=== PATIENT | male | born 1945 | race Caucasian/White ===

== ENCOUNTER → 2016-05-14 | Outpatient (CLI) | payer MEDICARE, MEDICAID ==
[~2016-05-14] MED LIST: ACLI400A2 INH; ASPI-496 PO; ASPI-515 PO; BUDE10.2 INH; CEFD300C2 PO; CHLO15MO MM; CLOT15CR5 TP; DOCU100T3 PO; DOXA4TAB3 PO; ENAL1TAB5 PO; ENAL20TA PO; FINA5TAB4 PO; FLUT1DIS3 INH; HYDR-3138 PO; HYDR-3240 PO; HYDR25TA6 PO; INSU100I28 SQ-INSULIN; INSU100V13 SC; IPRA12.9 INH; IPRA4AER INH; METF10002 PO; METF500T PO; METO-95 PO; METO50TA82 PO; MULT-257 PO; NAPR220C PO; NIAC500T PO; OMEP-110 PO; OMEP40CA6 PO; POTA10TA90 PO; POTA20TA89 PO; RANI150T8 PO; SIMV20TA3 PO; TAMS-11 PO; TAMS0.4C2 PO; TRAZ50TA18 PO
[2016-05-14 14:30] LABS: HEMOGLOBIN 13.8 g/dL (13.7-18.0)
[2016-05-14 14:41] LABS: ASPARTATE AMINO TRANSFERASE 19 U/L (15-37); BLOOD UREA NITROGEN 21 mg/dL (7-18)
== END | disposition home or self-care (01) ==
LOC: STAR 13:18
PROVIDERS: ATTEND Urology
DX: Z01.818 Encounter for other preprocedural examination (principal); N28.9 Disorder of kidney and ureter, unspecified
CPT/HCPCS: 36415; 80053; 85025; 93005

== ENCOUNTER 2016-05-20 05:10 | Inpatient (IN) | payer MEDICARE, MEDICAID ==
[2016-05-14 14:04] VITALS: BP 134/87
[~2016-05-20] VITALS: Ht 182.9 cm; Wt 90.0 kg
[2016-05-20] MEDS ORDERED: MIDAZOLAM 1 MG/ML, 2ML ONE (07:40)
[2016-05-20] MEDS ORDERED: FENTANYL PF 250 MCG/5ML ONE (07:40)
[2016-05-20] MEDS ORDERED: LABETALOL 5MG/ML, 20ML IV PRN (09:00)
[2016-05-20] MEDS ORDERED: FENTANYL PF 100 MCG/2ML IV PRN (09:00)
[2016-05-20] MEDS ORDERED: PROMETHAZINE 25 MG/ML, 1ML IV PRN (09:00)
[2016-05-20] MEDS ORDERED: MEPERIDINE/PF 25MG/0.5ML IVPush PRN (09:00)
[2016-05-20] MEDS ORDERED: OXYcodone 5 MG/5 ML ORAL.SOL UDC PO PRN (09:00)
[2016-05-20] MEDS ORDERED: METOCLOPRAMIDE 5 MG/ML, 2ML IV PRN (09:00)
[2016-05-20] MEDS ORDERED: MIDAZOLAM 1 MG/ML, 2ML IV PRN (09:00)
[2016-05-20] MEDS ORDERED: hydrALAzine 20 MG/ML, 1ML IV PRN (09:00)
[2016-05-20] MEDS ORDERED: ACETAMINOPHEN 325 MG TABLET PO PRN (09:00)
[2016-05-20] MEDS ORDERED: ONDANSETRON 2MG/ML, 2ML IVPush PRN (09:00)
[2016-05-20] MEDS ORDERED: HYDROmorphone 1 MG/ML, 1ML IV PRN (09:00)
[2016-05-20] MEDS ORDERED: HYDROmorphone 2 MG/ML, 1ML ONE (09:15)
[2016-05-20] MEDS ORDERED: OMNIPAQUE 350 MG/ML, 50 ML BOTTLE ONE (10:08)
[2016-05-20] MEDS ORDERED: OPIUM/BELLADONNA SUPP.RECT 16.2-60 MG ONE (11:22)
[2016-05-20] MEDS ORDERED: OPIUM/BELLADONNA SUPP.RECT 16.2-60 MG PR PRN ×2 (11:30→13:30)
[2016-05-20] MEDS ORDERED: ONDANSETRON 2MG/ML, 2ML IV PRN (13:30)
[2016-05-20] MEDS ORDERED: D5%-LACTATED RINGERS 1,000 ML IV SCH (13:30)
[2016-05-20] MEDS ORDERED: OXYcodone/APAP 5/325MG TABLET PO PRN (13:30)
[2016-05-20] MEDS ORDERED: DOCUSATE 100 MG CAPSULE PO PRN (13:30)
[2016-05-20] MEDS ORDERED: HYDROcodone/APAP 5/325 TABLET PO PRN (13:30)
[2016-05-20] MEDS ORDERED: morphine SULFATE 10 MG/ML, 1ML IV PRN ×2 (13:30)
[2016-05-20] MEDS ORDERED: NICOTINE 7 MG/24 HR PATCH.TD24 TD SCH (13:30)
[2016-05-20] MEDS ORDERED: ALBUTEROL/IPRATROPIUM 2.5MG/0.5MG, 3 ML NPPB PRN (14:00)
[2016-05-20] MEDS: SODIUM CHLORIDE 0.45% 1,000 ML IV SCH (14:25)
[2016-05-20] MEDS: metFORMIN 500 MG TABLET PO SCH ×2 (17:05→17:07)
[2016-05-20] MEDS: CEFAZOLIN PMX 1GM/50ML 50 ML IVPB SCH (17:05)
[2016-05-20] MEDS: INSULIN REGULAR 100 UNITS/ML, 3ML VIAL SQ-INSULIN SCH ×2 (17:29→21:07)
[2016-05-20 19:31] VITALS: BP 122/69
[2016-05-20] MEDS ORDERED: TRAZODONE 100MG TABLET PO SCH (21:00)
[2016-05-20] MEDS ORDERED: INSULIN DETEMIR 100 UNITS/ML, PEN SQ-INSULIN SCH (21:00)
[2016-05-20] MEDS ORDERED: SIMVASTATIN 20 MG TABLET PO SCH (21:00)
[2016-05-20] MEDS: ENALAPRIL 10 MG TABLET PO SCH (21:05)
[2016-05-20] MEDS: HYDROCHLOROTHIAZIDE 25 MG TABLET PO SCH (21:05)
[2016-05-21] MEDS: CEFAZOLIN PMX 1GM/50ML 50 ML IVPB SCH
[2016-05-21] MEDS: SODIUM CHLORIDE 0.45% 1,000 ML IV SCH ×2 (00:01→10:41)
[2016-05-21 01:44] VITALS: BP 131/70
[2016-05-21] MEDS ORDERED: METOPROLOL SUCCINATE 100 MG TAB.ER.24H PO SCH (06:00)
[2016-05-21 06:31] VITALS: BP 168/95
[2016-05-21 06:45] VITALS: BP 153/83
[2016-05-21] MEDS: INSULIN REGULAR 100 UNITS/ML, 3ML VIAL SQ-INSULIN SCH (07:00)
[2016-05-21] MEDS ORDERED: OMEPRAZOLE 20 MG CAPSULE.DR PO SCH (07:30)
[2016-05-21] MEDS: HYDROCHLOROTHIAZIDE 25 MG TABLET PO SCH (07:43)
[2016-05-21] MEDS: ENALAPRIL 10 MG TABLET PO SCH (07:44)
[2016-05-21] MEDS: metFORMIN 500 MG TABLET PO SCH (07:44)
[2016-05-21] MEDS ORDERED: CEPH-368 PO (11:20)
[2016-05-21] MEDS ORDERED: OXYB5TAB7 PO (11:20)
== END 2016-05-21 12:43 | disposition home or self-care (01) | DRG 667 ==
LOC: OUT 05:10 → 4NOR 11:29 → OUT 05-21 01:51 → DCLOUNGE 05-21 11:03
PROVIDERS: ADMIT Urology; ATTEND Urology
PROC: 0TCB8ZZ Extirpation of Matter from Bladder, Via Natural or Artificial Opening Endoscopic (ICD-10-PCS; principal; 2016-05-21)
PROC: 0VB08ZZ Excision of Prostate, Via Natural or Artificial Opening Endoscopic (ICD-10-PCS; 2016-05-21)
PROC: BT1D1ZZ Fluoroscopy of Right Kidney, Ureter and Bladder using Low Osmolar Contrast (ICD-10-PCS; 2016-05-21)
DX: N21.0 Calculus in bladder (principal); N40.1 Benign prostatic hyperplasia with lower urinary tract symptoms; R33.8 Other retention of urine; N32.89 Other specified disorders of bladder; I10 Essential (primary) hypertension; J44.9 Chronic obstructive pulmonary disease, unspecified; E11.9 Type 2 diabetes mellitus without complications; Z82.3 Family history of stroke; Z90.79 Acquired absence of other genital organ(s); N28.82 Megaloureter
CPT/HCPCS: 74420; 82360; 82962; 88300; 88305; 94640; J0690; J1170; J1815; J2250; J3010; J7620; Q9967; C1769

== ENCOUNTER → 2016-06-27 | Outpatient (CLI) | payer MEDICARE, MEDICAID ==
[~2016-06-27] MED LIST changes: -CEFD300C2 PO; +CEFD300C37 PO; +CEPH-368 PO; +OXYB5TAB7 PO
== END | disposition home or self-care (01) ==
LOC: CFH 10:05
PROVIDERS: ATTEND Internal Medicine Geriatric Medicine
DX: B18.1 Chronic viral hepatitis B without delta-agent (principal); N28.1 Cyst of kidney, acquired; R93.2 Abnormal findings on diagnostic imaging of liver and biliary tract
CPT/HCPCS: 93975

== ENCOUNTER → 2016-09-26 | Outpatient (CLI) | payer MEDICARE, MEDICAID ==
[~2016-09-26] MED LIST changes: +CELE100C PO
[2016-09-26 15:20] LABS: PATH.CAST-FLAG NOT PRESENT; SPERM-FLAG NOT PRESENT; SRC-FLAG NOT PRESENT; XTAL-FLAG NOT PRESENT; YLC-FLAG NOT PRESENT
[2016-09-26 15:23] LABS: ASPARTATE AMINO TRANSFERASE 15 U/L (15-37); BLOOD UREA NITROGEN 26 mg/dL (7-18)
[2016-09-26 15:42] LABS: HEMATOCRIT 42.6 % (39.2-51.8); WHITE BLOOD COUNT 7.6 x10^3/uL (3.4-10)
== END | disposition home or self-care (01) ==
LOC: STAR 14:02
PROVIDERS: ATTEND Urology
DX: Z01.818 Encounter for other preprocedural examination (principal); I44.4 Left anterior fascicular block; N20.0 Calculus of kidney; N47.1 Phimosis; N21.0 Calculus in bladder; R79.1 Abnormal coagulation profile; J44.9 Chronic obstructive pulmonary disease, unspecified; E11.9 Type 2 diabetes mellitus without complications
CPT/HCPCS: 36415; 80053; 81001; 85025; 85610; 85730; 87077; 87086; 87186; 93005

== ENCOUNTER → 2016-11-03 | Outpatient (CLI) | payer MEDICARE, MEDICAID ==
[~2016-11-03] MED LIST changes: -HYDR-3138 PO; +HYDR-3237 PO; +POTA10TA6 PO; -POTA10TA90 PO
[2016-11-03 14:52] LABS: HEMATOCRIT 42.8 % (39.2-51.8); HEMOGLOBIN 14.5 g/dL (13.7-18.0); WHITE BLOOD COUNT 12.1 x10^3/uL (3.4-10)
[2016-11-03 15:05] LABS: BLOOD UREA NITROGEN 25 mg/dL (7-18)
[2016-11-03 15:09] LABS: ASPARTATE AMINO TRANSFERASE 20 U/L (15-37)
== END | disposition home or self-care (01) ==
LOC: STAR 13:36
PROVIDERS: ATTEND Urology
DX: Z01.818 Encounter for other preprocedural examination (principal); N20.1 Calculus of ureter; N21.0 Calculus in bladder; R31.0 Gross hematuria; N47.1 Phimosis; N40.1 Benign prostatic hyperplasia with lower urinary tract symptoms
CPT/HCPCS: 36415; 80053; 81001; 85025; 85610; 85730; 87077; 87086; 93005

== ENCOUNTER 2016-11-19 07:34 | Day surgery (SDC) | payer MEDICARE, MEDICAID ==
[~2016-11-19] VITALS: Ht 182.9 cm; Wt 86.9 kg
[2016-11-19] MEDS ORDERED: MIDAZOLAM 1 MG/ML, 2ML ONE (08:09)
[2016-11-19] MEDS ORDERED: PROPOFOL 10 MG/ML, 20ML ONE ×2 (08:09→10:03)
[2016-11-19] MEDS ORDERED: FENTANYL PF 100 MCG/2ML ONE (08:09)
[2016-11-19] MEDS ORDERED: DEXAMETHASONE 4 MG/ML, 1ML ONE ×2 (08:09)
[2016-11-19] MEDS ORDERED: ONDANSETRON 2MG/ML, 2ML ONE (08:09)
[2016-11-19] MEDS ORDERED: CEFAZOLIN 1,000 MG ONE ×2 (08:11)
[2016-11-19 08:27] VITALS: BP 144/94
[2016-11-19] MEDS ORDERED: LACTATED RINGERS 1,000 ML IV SCH (08:31)
[2016-11-19] MEDS ORDERED: LIDOCAINE 1%, 2ML SQ PRN (09:00)
[2016-11-19] MEDS ORDERED: CIPROFLOXACIN/PMX 400MG/200ML 200 ML ONE (09:58)
[2016-11-19] MEDS ORDERED: GENTAMICIN 80 MG/2 ML ONE (09:58)
[2016-11-19] MEDS ORDERED: GLYCOPYRROLATE 0.4 MG/2 ML, 2ML ONE (10:17)
[2016-11-19] MEDS ORDERED: PROMETHAZINE 25 MG/ML, 1ML IV PRN (11:00)
[2016-11-19] MEDS ORDERED: FENTANYL PF 100 MCG/2ML IV PRN (11:00)
[2016-11-19] MEDS ORDERED: OXYcodone 5 MG/5 ML ORAL.SOL UDC PO PRN (11:00)
[2016-11-19] MEDS ORDERED: OXYcodone 5 MG/5 ML ORAL.SOL UDC ONE (11:34)
== END 2016-11-19 14:45 ==
LOC: OUT 07:34
PROVIDERS: ATTEND Urology
DX: N20.0 Calculus of kidney (principal); J44.9 Chronic obstructive pulmonary disease, unspecified; I10 Essential (primary) hypertension; E11.9 Type 2 diabetes mellitus without complications; Z87.440 Personal history of urinary (tract) infections; F17.200 Nicotine dependence, unspecified, uncomplicated; Z79.4 Long term (current) use of insulin
CPT/HCPCS: 50590; 74000; 82962; J0744; J1580; J2250; J2405; J2704; J3010; J0690; J1100

== ENCOUNTER → 2017-01-21 | Outpatient (CLI) | payer MEDICARE, MEDICAID | END | disposition home or self-care (01) | LOC: CFH 07:45 | PROVIDERS: ATTEND Internal Medicine Geriatric Medicine | DX: N28.1 Cyst of kidney, acquired (principal); B18.1 Chronic viral hepatitis B without delta-agent; I10 Essential (primary) hypertension | CPT/HCPCS: 93975 ==

== ENCOUNTER 2017-02-09 10:32 | Emergency (ER) | payer MEDICARE, MEDICAID ==
[~2017-02-09] VITALS: Ht 182.9 cm; Wt 87.5 kg
[2017-02-09 12:26] VITALS: BP 140/83
== END 2017-02-09 14:05 | disposition home or self-care (01) ==
LOC: ED 13:56
DX: J40 Bronchitis, not specified as acute or chronic (principal); I10 Essential (primary) hypertension; E11.9 Type 2 diabetes mellitus without complications; J44.9 Chronic obstructive pulmonary disease, unspecified; F17.200 Nicotine dependence, unspecified, uncomplicated
CPT/HCPCS: 71046; 99284

== ENCOUNTER 2017-03-01 20:44 | Emergency (ER) | payer MEDICARE, MEDICAID ==
[~2017-03-01] VITALS: Ht 182.9 cm; Wt 85.7 kg
[2017-03-01 20:46] VITALS: BP 147/83
== END 2017-03-01 22:23 | disposition home or self-care (01) ==
LOC: ED 21:09
DX: S13.4XXA Sprain of ligaments of cervical spine, initial encounter (principal); J44.9 Chronic obstructive pulmonary disease, unspecified; I10 Essential (primary) hypertension; E11.9 Type 2 diabetes mellitus without complications; K21.9 Gastro-esophageal reflux disease without esophagitis; E78.00 Pure hypercholesterolemia, unspecified; X58.XXXA Exposure to other specified factors, initial encounter; Y93.89 Activity, other specified; Y92.89 Other specified places as the place of occurrence of the external cause; Y99.8 Other external cause status
CPT/HCPCS: 72050; 99284

== ENCOUNTER 2017-12-09 10:12 | Outpatient (CLI) | payer MEDICARE, MEDICAID ==
[~2017-12-09 10:12] MED LIST changes: +RANI150T23 PO; -RANI150T8 PO; +TRAZ-136 PO; -TRAZ50TA18 PO
== END 2017-12-16 12:09 | disposition home or self-care (01) ==
LOC: CFH 10:12
PROVIDERS: ATTEND Internal Medicine Geriatric Medicine
DX: R16.1 Splenomegaly, not elsewhere classified (principal); N28.1 Cyst of kidney, acquired
CPT/HCPCS: 76700

== ENCOUNTER → 2018-05-24 | Outpatient (CLI) | payer MEDICARE, MEDICAID ==
[~2018-05-24] MED LIST changes: -NAPR220C PO; +NAPR220C62 PO; -TRAZ-136 PO; +TRAZ50TA66 PO
== END | disposition home or self-care (01) ==
LOC: CFH 09:34
PROVIDERS: ATTEND Internal Medicine Geriatric Medicine
DX: B18.1 Chronic viral hepatitis B without delta-agent (principal); N28.1 Cyst of kidney, acquired; R16.1 Splenomegaly, not elsewhere classified
CPT/HCPCS: 76700

== ENCOUNTER 2018-08-31 15:41 | Emergency (ER) | payer MEDICARE, MEDICAID ==
[~2018-08-31] VITALS: Ht 175.3 cm; Wt 99.0 kg
--- NOTE | 2018-08-31 16:06 | NUR ---
PT STATES HE HAS A L SWOLLEN FOOT, HE STATES ITS BEEN GOING ON FOR A COUPLE MONTHS. PT STATES, "IT FEELS LIKE IM WEARING A SOCK". PT ALSO STATES HE WAS SITTING DOWN AND THEN PASSED OUT YESTERDAY, DID NOT HIT HEAD. PT STATES THIS HAPPENS ABOUT ONCE A YEAR.
[2018-08-31 16:51] VITALS: BP 122/95
--- NOTE | 2018-08-31 16:51 | NUR ---
LABS DRAWN, PT DENIES PAIN, NO NEEDS AT THIS TIME
[2018-08-31 17:04] LABS: BASOPHILS # (AUTO) 0.03 x10^3/uL (0-0.1); BASOPHILS % (AUTO) 0 % (0-1); EOSINOPHILS # (AUTO) 0.17 x10^3/uL (0-0.4); EOSINOPHILS % (AUTO) 2 % (1-7); LYMPHOCYTES # (AUTO) 1.46 x10^3/uL (1-3.4); LYMPHOCYTES % (AUTO) 20 % (22-44); MD NO; MEAN CORPUSCULAR HGB CONC 32.5 g/dL (33.2-36.2); MEAN CORPUSCULAR VOLUME 89.1 fL (81-97); MEAN PLATELET VOLUME 7.6 fL (7.4-10.4); MONOCYTES # (AUTO) 0.76 x10^3/uL (0.2-0.8); MONOCYTES % (AUTO) 10 % (2-9); NEUTROPHILS # (AUTO) 4.86 x10^3/uL (1.8-6.8); NEUTROPHILS % (AUTO) 67 % (42-75); PLATELET COUNT 208 x10^3/uL (130-400); RED BLOOD COUNT 4.66 x10^6/uL (4.38-5.82)
[2018-08-31 17:17] LABS: ALANINE AMINOTRANSFERASE 77 U/L (12-78); ALBUMIN 3.8 g/dL (3.4-5.0); ANION GAP 6 mmol/L (5-15); CALCIUM 10.1 mg/dL (8.5-10.1); CHLORIDE 114 mmol/L (98-107); CREATININE 1.59 mg/dL (0.7-1.3)
[2018-08-31 17:21] LABS: ALKALINE PHOSPHATASE 41 U/L (45-117); BILIRUBIN,TOTAL 0.4 mg/dL (0.2-1.0); TOTAL PROTEIN 7.4 g/dL (6.4-8.2); TROPONIN I < 0.015 ng/mL (0.000-0.045)
== END 2018-08-31 18:06 | disposition home or self-care (01) ==
LOC: ED 17:01
DX: I87.2 Venous insufficiency (chronic) (peripheral) (principal); R60.0 Localized edema; R55 Syncope and collapse
CPT/HCPCS: 36415; 80053; 84484; 85025; 93005; 99284

== ENCOUNTER → 2019-01-03 | Outpatient (CLI) | payer MEDICARE, MEDICAID ==
[~2019-01-03] MED LIST changes: -ACLI400A2 INH; +ACLI400A3 INH; +OMEP40CA42 PO; -OMEP40CA6 PO; +OXYB5TAB10 PO; -OXYB5TAB7 PO; +RANI-467 PO; -RANI150T23 PO
== END | disposition home or self-care (01) ==
LOC: CFH 10:46
PROVIDERS: ATTEND Internal Medicine Geriatric Medicine
DX: K76.0 Fatty (change of) liver, not elsewhere classified (principal); B18.1 Chronic viral hepatitis B without delta-agent; R16.1 Splenomegaly, not elsewhere classified; N28.1 Cyst of kidney, acquired; F17.200 Nicotine dependence, unspecified, uncomplicated; F12.10 Cannabis abuse, uncomplicated; I10 Essential (primary) hypertension; E11.9 Type 2 diabetes mellitus without complications; Z86.010 Personal history of colon polyps
CPT/HCPCS: 76700

== ENCOUNTER 2019-04-20 20:40 | Observation (INO) | payer MEDICARE, MEDICAID ==
[~2019-04-20] VITALS: Ht 182.9 cm; Wt 95.6 kg
[~2019-04-20 20:40] MED LIST changes: +SIMV20TA19 PO; -SIMV20TA3 PO
--- NOTE | 2019-04-20 21:01 | NUR ---
REPORTS FEVER & CHILLS X 2 MONTHS, WORSENED IN PAST FEW WEEKS. HAS PCP APPOINTMENT "NEXT THURSDAY" - DR SARAVIA -"BUT I COULDN'T WAIT THAT LONG". HAS TAKEN ALEVE - LAST DOSE:1030 TODAY. C/O PAIN TO JOINTS AND LOWER BACK. TRAN "JUST NOW". NAUSEA W/ COUGHING. DENIES VOMITING. USED BREO & ALBUTEROL INHALER THIS AM.
--- NOTE | 2019-04-20 21:06 | NUR ---
DR FRIAS BS FOR EXAM.
[2019-04-20] MEDS ORDERED: ALLO100T30 PO (21:12)
[2019-04-20] MEDS ORDERED: AMLO10TA8 PO (21:12)
--- NOTE | 2019-04-20 21:23 | NUR ---
PIV INITIATED: 20G LT LOWER FA. BLOOD CX DRAWN X 2, WRIST BAND PLACED PER RESEARCH AND DEVELOPMENT MANAGER. CARDIAC MONITORING IN PROGRESS. EKG AND CXR COMPLETED
[2019-04-20 21:29] LABS: BASOPHILS # (AUTO) 0.01 x10^3/uL (0-0.1); BASOPHILS % (AUTO) 0 % (0-1); EOSINOPHILS # (AUTO) 0.04 x10^3/uL (0-0.4); EOSINOPHILS % (AUTO) 0 % (1-7); LYMPHOCYTES # (AUTO) 0.55 x10^3/uL (1-3.4); LYMPHOCYTES % (AUTO) 6 % (22-44); MD NO; MEAN CORPUSCULAR HEMOGLOBIN 29.5 pg (27.5-34.5); MEAN CORPUSCULAR HGB CONC 33.5 g/dL (33.2-36.2); MEAN CORPUSCULAR VOLUME 88.2 fL (81-97); MEAN PLATELET VOLUME 7.5 fL (7.4-10.4); MONOCYTES # (AUTO) 0.71 x10^3/uL (0.2-0.8); MONOCYTES % (AUTO) 7 % (2-9); NEUTROPHILS # (AUTO) 8.28 x10^3/uL (1.8-6.8); NEUTROPHILS % (AUTO) 86 % (42-75); PLATELET COUNT 205 x10^3/uL (130-400); RED BLOOD COUNT 4.64 x10^6/uL (4.38-5.82)
[2019-04-20] MEDS ORDERED: ACETAMINOPHEN 325 MG TABLET PO ONE (21:30)
[2019-04-20] MEDS ORDERED: SODIUM CHLORIDE 0.9% 1,000ML IVBOLUS ONE (21:30)
[2019-04-20] MEDS ORDERED: SODIUM CHLORIDE FLUSH 10ML SYR IVF ONE (21:30)
[2019-04-20] MEDS ORDERED: ALBU18HF INH (21:35)
[2019-04-20] MEDS ORDERED: BUPR150T6 PO (21:35)
[2019-04-20] MEDS ORDERED: FLUT1AER INH (21:35)
[2019-04-20 21:36] LABS: RAPID INFLUENZA A Negative (Negative); RAPID INFLUENZA B Negative (Negative)
[2019-04-20 21:42] LABS: ALANINE AMINOTRANSFERASE 43 U/L (12-78); ALBUMIN 3.8 g/dL (3.4-5.0); ANION GAP 7 mmol/L (5-15); CALCIUM 8.7 mg/dL (8.5-10.1); CHLORIDE 108 mmol/L (98-107); CREATININE 1.37 mg/dL (0.7-1.3)
[2019-04-20 21:44] LABS: ALKALINE PHOSPHATASE 46 U/L (45-117); BILIRUBIN,TOTAL 0.6 mg/dL (0.2-1.0); TOTAL PROTEIN 7.4 g/dL (6.4-8.2)
[2019-04-20] MEDS ORDERED: ACETAMINOPHEN 325 MG TABLET ONE (21:46)
--- NOTE | 2019-04-20 21:55 | NUR ---
TYLENOL GIVEN PER EMAR. URINAL PROVIDED TO PT.
--- NOTE | 2019-04-20 23:02 | NUR ---
REPORT OF PT FROM CLIF WILD AND ASSUMING CARE OF PT AT THIS TIME.
[2019-04-20 23:05] LABS: MICROSCOPIC AUTO
[2019-04-20 23:08] LABS: CULTURE INDICATED? NO
--- NOTE | 2019-04-20 23:40 | NUR ---
PT TO [facility] VIA [facility] AT THIS TIME
[2019-04-20] MEDS ORDERED: OMNIPAQUE 350 MG/ML, 100ML BOTTLE ONE (23:55)
--- NOTE | 2019-04-21 00:24 | NUR ---
PT BACK FROM [facility]. PT IN [facility] AT THIS TIME. VSS AND UPDATED IN EMR. PT HAS CALL LIGHT WITHIN REACH.
[2019-04-21] MEDS ORDERED: methylPREDNISolone SOD SUCC 125 MG/2 ML ONE (00:41)
[2019-04-21] MEDS ORDERED: ALBUTEROL/IPRATROPIUM 2.5MG/0.5MG, 3 ML NPPB ONE (01:00)
[2019-04-21] MEDS ORDERED: methylPREDNISolone SOD SUCC 125 MG/2 ML IV ONE (01:00)
--- NOTE | 2019-04-21 01:10 | NUR ---
REPORT OF PT TO CLIF ROTHMAN ON PHONE. ALL QUESTIONS ANSWERED.
[2019-04-21 01:45] VITALS: BP 137/74
[2019-04-21] MEDS: CEFTRIAXONE PMX 1GM/50ML 50 ML IV SCH (03:01)
[2019-04-21] MEDS: ENOXAPARIN 40 MG/0.4 ML SQ SCH (03:01)
[2019-04-21] MEDS: TRAZODONE 100MG TABLET PO PRN ×2 (03:04→22:41)
[2019-04-21] MEDS: BUDESONIDE 0.5 MG/2 ML INHA NPPB SCH ×2 (09:00→21:45)
[2019-04-21] MEDS: ALBUTEROL SULFATE 2.5 MG/3 ML NPPB SCH ×3 (09:00→21:45)
[2019-04-21 10:21] VITALS: BP 154/73
[2019-04-21 14:05] VITALS: BP 128/77
[2019-04-21] MEDS: ACETAMINOPHEN 325 MG TABLET PO PRN (17:24)
[2019-04-21 21:00] VITALS: BP 143/79
[2019-04-21] MEDS ORDERED: BENZOCAINE 20% SPRAY 0.5ML TP ONE (21:30)
[2019-04-22 01:12] VITALS: BP 132/52
[2019-04-22] MEDS: ALBUTEROL SULFATE 2.5 MG/3 ML NPPB SCH ×3 (03:00→15:20)
[2019-04-22] MEDS: CEFTRIAXONE PMX 1GM/50ML 50 ML IV SCH (03:08)
[2019-04-22] MEDS: ENOXAPARIN 40 MG/0.4 ML SQ SCH (03:09)
[2019-04-22 06:18] LABS: BASOPHILS % (AUTO) 0 % (0-1); EOSINOPHILS % (AUTO) 0 % (1-7); LYMPHOCYTES # (AUTO) 0.69 x10^3/uL (1-3.4); LYMPHOCYTES % (AUTO) 6 % (22-44); MD NO; MEAN CORPUSCULAR HEMOGLOBIN 29.5 pg (27.5-34.5); MEAN CORPUSCULAR HGB CONC 33.4 g/dL (33.2-36.2); MEAN CORPUSCULAR VOLUME 88.4 fL (81-97); MEAN PLATELET VOLUME 7.7 fL (7.4-10.4); MONOCYTES # (AUTO) 0.79 x10^3/uL (0.2-0.8); MONOCYTES % (AUTO) 7 % (2-9); NEUTROPHILS # (AUTO) 10.38 x10^3/uL (1.8-6.8); NEUTROPHILS % (AUTO) 88 % (42-75); PLATELET COUNT 204 x10^3/uL (130-400); RED BLOOD COUNT 4.16 x10^6/uL (4.38-5.82); RED CELL DISTRIBUTION WIDTH 16.2 % (9.4-14.8)
[2019-04-22 06:26] LABS: ANION GAP 7 mmol/L (5-15); CALCIUM 8.5 mg/dL (8.5-10.1); CHLORIDE 112 mmol/L (98-107)
[2019-04-22 06:29] LABS: CREATININE 1.42 mg/dL (0.7-1.3)
[2019-04-22] MEDS: ACETAMINOPHEN 325 MG TABLET PO PRN ×2 (08:35→14:42)
[2019-04-22] MEDS: BUDESONIDE 0.5 MG/2 ML INHA NPPB SCH (09:30)
[2019-04-22 11:23] VITALS: BP 135/82
[2019-04-22] MEDS ORDERED: AMPICILLIN/SULBACTAM 3 GM in SODIUM CHLORIDE 0.9% 100 ML IV SCH (14:00)
[2019-04-22 14:28] VITALS: BP 131/64
[2019-04-22] MEDS ORDERED: PRED20TA PO (16:17)
[2019-04-22] MEDS ORDERED: FLUT16SP24 NAS (16:17)
[2019-04-22] MEDS ORDERED: AMOX1TAB64 PO (16:17)
[2019-04-22] MEDS ORDERED: FLUTICASONE NASAL SPRAY 16GM NAS SCH (21:00)
== END 2019-04-22 18:27 | disposition home or self-care (01) ==
LOC: ED 04-21 01:06 → EDIP 04-21 01:38 → 3N 04-21 01:41
PROVIDERS: ADMIT Family Medicine; ATTEND Family Medicine
DX: J44.1 Chronic obstructive pulmonary disease with (acute) exacerbation (principal); N17.9 Acute kidney failure, unspecified; N18.9 Chronic kidney disease, unspecified; I12.9 Hypertensive chronic kidney disease with stage 1 through stage 4 chronic kidney disease, or unspecified chronic kidney disease; F32.9 Major depressive disorder, single episode, unspecified; R50.9 Fever, unspecified; M10.9 Gout, unspecified; E78.5 Hyperlipidemia, unspecified; F17.210 Nicotine dependence, cigarettes, uncomplicated; J20.9 Acute bronchitis, unspecified; Z79.82 Long term (current) use of aspirin; Z79.4 Long term (current) use of insulin
CPT/HCPCS: 36415; 71045; 71275; 80048; 80053; 81001; 82962; 83605; 84145; 85025; 87040; 87205; 87400; 93005; 94640; 96365; 96366; 96367; 96372; 96375; 99285; G0378; J0295; J0696; J1650; J2930; J7030; J7512; J7613; J7626; Q9967

== ENCOUNTER 2019-08-09 14:36 | Emergency (ER) | payer MEDICAID, MEDICARE ==
[~2019-08-09] VITALS: Ht 182.9 cm; Wt 105.0 kg
[~2019-08-09 14:36] MED LIST changes: +ALBU18HF INH; +ALLO100T30 PO; +AMLO10TA8 PO; +AMOX1TAB64 PO; +BUPR150T6 PO; +CLOT15CR26 TP; -CLOT15CR5 TP; +FLUT16SP24 NAS; +FLUT1AER INH; +PRED20TA PO
--- NOTE | 2019-08-09 15:03 | NUR ---
pt presents to ED sent from pcp via [facility] for sob, increased wob. report received from ems. 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 pt denies new cough (states he has a chronic cough which is no different from his normal today), denies fever, denies sick contacts. pt states he feels his symptoms are secondary to asthma. pt is a&o, resps even and unlabored, able to speak in full sentences. pt denies pain. EKG taken on arrival, pt on all monitors, call light in reach. report given to CLIF Gonzalez who is assuming care.
[2019-08-09 15:30] LABS: BASOPHILS # (AUTO) 0.03 x10^3/uL (0-0.1); BASOPHILS % (AUTO) 0 % (0-1); EOSINOPHILS # (AUTO) 0.23 x10^3/uL (0-0.4); EOSINOPHILS % (AUTO) 4 % (1-7); LYMPHOCYTES # (AUTO) 1.73 x10^3/uL (1-3.4); LYMPHOCYTES % (AUTO) 26 % (22-44); MD NO; MEAN CORPUSCULAR HEMOGLOBIN 29.5 pg (27.5-34.5); MEAN CORPUSCULAR HGB CONC 33.4 g/dL (33.2-36.2); MEAN CORPUSCULAR VOLUME 88.4 fL (81-97); MEAN PLATELET VOLUME 7.3 fL (7.4-10.4); MONOCYTES # (AUTO) 0.58 x10^3/uL (0.2-0.8); MONOCYTES % (AUTO) 9 % (2-9); NEUTROPHILS # (AUTO) 4.09 x10^3/uL (1.8-6.8); NEUTROPHILS % (AUTO) 61 % (42-75); PLATELET COUNT 218 x10^3/uL (130-400); RED CELL DISTRIBUTION WIDTH 14.8 % (9.4-14.8)
[2019-08-09 15:32] LABS: ALBUMIN 3.8 g/dL (3.4-5.0); ANION GAP 5 mmol/L (5-15); CALCIUM 9.3 mg/dL (8.5-10.1); CHLORIDE 111 mmol/L (98-107); CREATININE 1.41 mg/dL (0.7-1.3)
[2019-08-09] MEDS ORDERED: ALBUTEROL/IPRATROPIUM 2.5MG/0.5MG, 3 ML ONE (16:29)
[2019-08-09] MEDS ORDERED: ALBUTEROL/IPRATROPIUM 2.5MG/0.5MG, 3 ML NPPB ONE (16:30)
[2019-08-09 16:36] VITALS: BP 154/76
--- NOTE | 2019-08-09 18:02 | NUR ---
Transport arranged through [facility]. ETA is [phone].
--- NOTE | 2019-08-09 18:28 | NUR ---
[facility]waiting [facility]. Pt tolerated neb well and dressed for home dc.
== END 2019-08-09 19:17 ==
LOC: ED 16:02
DX: J44.1 Chronic obstructive pulmonary disease with (acute) exacerbation (principal); R06.00 Dyspnea, unspecified; I10 Essential (primary) hypertension; E11.9 Type 2 diabetes mellitus without complications; M10.9 Gout, unspecified; I44.4 Left anterior fascicular block
CPT/HCPCS: 36415; 71045; 80048; 82040; 85025; 93005; 94640; 99285; J7512

== ENCOUNTER → 2019-12-13 | Outpatient (CLI) | payer MEDICARE, MEDICAID ==
[~2019-12-13] MED LIST changes: +AMLO-211 PO; -AMLO10TA8 PO; +DOXA2TAB9 PO; -ENAL20TA PO; +ENAL20TA9 PO; +TIOT18CA INH
== END | disposition home or self-care (01) ==
LOC: CFH 16:15
PROVIDERS: ATTEND Internal Medicine Geriatric Medicine
DX: N26.1 Atrophy of kidney (terminal) (principal); N28.1 Cyst of kidney, acquired; K76.0 Fatty (change of) liver, not elsewhere classified; B18.1 Chronic viral hepatitis B without delta-agent; J45.909 Unspecified asthma, uncomplicated
CPT/HCPCS: 76700

== ENCOUNTER → 2020-01-13 | Outpatient (CLI) | payer MEDICARE, MEDICAID | END | disposition home or self-care (01) | LOC: CFH 07:34 | PROVIDERS: ATTEND Internal Medicine Critical Care Medicine | DX: I11.9 Hypertensive heart disease without heart failure (principal); E11.9 Type 2 diabetes mellitus without complications; E78.5 Hyperlipidemia, unspecified; J45.909 Unspecified asthma, uncomplicated; Z87.891 Personal history of nicotine dependence | CPT/HCPCS: 93306 ==

== ENCOUNTER 2020-03-29 00:53 | Emergency (ER) | payer MEDICARE, MEDICAID ==
[~2020-03-29] VITALS: Ht 185.4 cm; Wt 106.0 kg
[~2020-03-29 00:53] MED LIST changes: -ASPI-515 PO; +ASPI-963 PO; -BUPR150T6 PO; +BUPR150T7 PO; +HYDR-1067 PO; -HYDR-3240 PO
[2020-03-29] MEDS ORDERED: LISI-167 PO (01:25)
[2020-03-29] MEDS ORDERED: ALBUTEROL SULFATE 2.5 MG/3 ML ONE (01:43)
[2020-03-29 01:58] LABS: BASOPHILS % (AUTO) 1 % (0-1); EOSINOPHILS % (AUTO) 3 % (1-7); LYMPHOCYTES % (AUTO) 21 % (22-44); MEAN CORPUSCULAR HEMOGLOBIN 29.1 pg (27.5-34.5); MEAN CORPUSCULAR HGB CONC 33.5 g/dL (33.2-36.2); MEAN PLATELET VOLUME 7.7 fL (7.4-10.4); MONOCYTES % (AUTO) 9 % (2-9); NEUTROPHILS % (AUTO) 65 % (42-75); PLATELET COUNT 198 x10^3/uL (130-400); RED CELL DISTRIBUTION WIDTH 15.2 % (9.4-14.8)
[2020-03-29] MEDS ORDERED: ALBUTEROL SULFATE 2.5 MG/3 ML NPPB ONE (02:00)
[2020-03-29 02:01] LABS: MD NO
[2020-03-29 02:06] LABS: ALANINE AMINOTRANSFERASE 130 U/L (12-78); ALBUMIN 3.6 g/dL (3.4-5.0); ANION GAP 10 mmol/L (5-15); CALCIUM 8.9 mg/dL (8.5-10.1); CHLORIDE 109 mmol/L (98-107); CREATININE 1.61 mg/dL (0.7-1.3)
--- NOTE | 2020-03-29 02:06 | NUR ---
NEB TX COMPLETED. PT REPORTS "FEELING A LOT BETTER AFTER THAT BREATHING TX". PT SITTING UPRIGHT ON GURPAULINE, NADN, VSS. PT DENIES ANY ADDITIONAL NEEDS AT THIS TIME. CALL LIGHT AND PERSONAL BELONGINGS WITHIN REACH
[2020-03-29 02:11] LABS: ALKALINE PHOSPHATASE 47 U/L (45-117); BILIRUBIN,TOTAL 0.4 mg/dL (0.2-1.0); TOTAL PROTEIN 7.2 g/dL (6.4-8.2); TROPONIN I < 0.015 ng/mL (0.000-0.045)
--- NOTE | 2020-03-29 03:11 | NUR ---
PT GIVEN JUICE AND CRACKERS PER REQUEST. PT DENIES ANY NEEDS AT THIS TIME. CALL LIGHT IN REACH
[2020-03-29 03:49] VITALS: BP 144/79
--- NOTE | 2020-03-29 03:50 | NUR ---
Patient/Caregiver given discharge instructions and they have confirmed that they understand the instructions. Patient ambulatory with steady gait.
== END 2020-03-29 03:54 | disposition home or self-care (01) ==
LOC: ED 01:42
DX: E11.65 Type 2 diabetes mellitus with hyperglycemia (principal); R53.1 Weakness; R06.02 Shortness of breath; I10 Essential (primary) hypertension; J44.9 Chronic obstructive pulmonary disease, unspecified; K21.9 Gastro-esophageal reflux disease without esophagitis; E78.00 Pure hypercholesterolemia, unspecified; M10.9 Gout, unspecified; R94.31 Abnormal electrocardiogram [ECG] [EKG]; F17.210 Nicotine dependence, cigarettes, uncomplicated
CPT/HCPCS: 36415; 71045; 80053; 82962; 83880; 84484; 85025; 93005; 94640; 99285; J7512; J7613; 99406

== ENCOUNTER 2020-08-25 20:40 | Emergency (ER) | payer MEDICARE, MEDICAID ==
[~2020-08-25] VITALS: Ht 182.9 cm; Wt 105.0 kg
[~2020-08-25 20:40] MED LIST changes: +BUPR150T22 PO; -BUPR150T7 PO; -HYDR-1067 PO; +HYDR-2214 PO; +INSU100I11 SQ-INSULIN; +INSU100I13 SQ-INSULIN; +LISI-167 PO; +MELA5CAP PO; +NICO-486 TD; -OMEP40CA42 PO; +OMEP40CA8 PO; +SEMA14TA PO; +SEMA3TAB PO; +SEMA7TAB PO
[2020-08-25 20:45] VITALS: BP 153/93
[2020-08-25] MEDS ORDERED: SODIUM CHLORIDE 0.9% 1,000ML IVBOLUS ONE (21:00)
--- NOTE | 2020-08-25 21:04 | NUR ---
REPORT RECEIVED FROM MARIAH MENEZES
[2020-08-25 21:08] LABS: BASOPHILS % (AUTO) 1 % (0-1); EOSINOPHILS % (AUTO) 4 % (1-7); LYMPHOCYTES % (AUTO) 23 % (22-44); MEAN CORPUSCULAR HEMOGLOBIN 29.9 pg (27.5-34.5); MEAN PLATELET VOLUME 7.4 fL (7.4-10.4); MONOCYTES % (AUTO) 10 % (2-9); NEUTROPHILS % (AUTO) 63 % (42-75); PLATELET COUNT 181 x10^3/uL (130-400); RED CELL DISTRIBUTION WIDTH 14.4 % (9.4-14.8)
[2020-08-25 21:15] LABS: ALBUMIN 3.2 g/dL (3.4-5.0); ANION GAP 6 mmol/L (5-15); CALCIUM 9.4 mg/dL (8.5-10.1); CHLORIDE 105 mmol/L (98-107)
[2020-08-25 21:17] LABS: CREATININE 1.41 mg/dL (0.7-1.3)
[2020-08-25] MEDS ORDERED: INSULIN REGULAR 100 UNITS/ML, 3ML VIAL SQ-INSULIN ONE (22:00)
--- NOTE | 2020-08-25 22:04 | NUR ---
Patient/Caregiver given discharge instructions and they have confirmed that they understand the instructions. Patient ambulatory with steady gait. NAD, all questions answered appropriately, denies additional needs at this time. No personal belongings left in room after discharge.
== END 2020-08-25 22:09 | disposition home or self-care (01) ==
LOC: ED 22:06
DX: E11.65 Type 2 diabetes mellitus with hyperglycemia (principal); K21.9 Gastro-esophageal reflux disease without esophagitis; J44.9 Chronic obstructive pulmonary disease, unspecified; F17.200 Nicotine dependence, unspecified, uncomplicated
CPT/HCPCS: 36415; 80048; 82040; 82962; 85025; 99283

== ENCOUNTER 2020-09-10 13:44 | Emergency (ER) | payer MEDICARE, MEDICAID ==
[~2020-09-10] VITALS: Ht 182.9 cm; Wt 100.0 kg
[2020-09-10] MEDS ORDERED: SODIUM CHLORIDE FLUSH 10ML SYR IVF ONE (14:00)
[2020-09-10] MEDS ORDERED: ONDANSETRON 2MG/ML, 2ML IVPush ONE (14:00)
[2020-09-10] MEDS ORDERED: HYDROmorphone 1 MG/ML, 1ML INJ IV ONE (14:00)
[2020-09-10] MEDS ORDERED: SODIUM CHLORIDE 0.9% 1,000 ML IV ONE (14:00)
--- NOTE | 2020-09-10 14:01 | NUR ---
pt also reports light tea colored urine. lung sounds v diminihsed L side. fluids infsuing. juan was in room for eval. as
[2020-09-10 14:21] LABS: BASOPHILS % (AUTO) 1 % (0-1); EOSINOPHILS % (AUTO) 2 % (1-7); LYMPHOCYTES % (AUTO) 19 % (22-44); MEAN CORPUSCULAR HGB CONC 34.4 g/dL (33.2-36.2); MEAN PLATELET VOLUME 7.3 fL (7.4-10.4); MONOCYTES % (AUTO) 9 % (2-9); NEUTROPHILS % (AUTO) 68 % (42-75); PLATELET COUNT 209 x10^3/uL (130-400); RED BLOOD COUNT 4.36 x10^6/uL (4.38-5.82); RED CELL DISTRIBUTION WIDTH 14.8 % (9.4-14.8)
[2020-09-10 14:26] LABS: ANION GAP 4 mmol/L (5-15); CALCIUM 8.8 mg/dL (8.5-10.1); CHLORIDE 110 mmol/L (98-107); CREATININE 1.52 mg/dL (0.7-1.3)
[2020-09-10 14:27] LABS: ALANINE AMINOTRANSFERASE 126 U/L (12-78); ALBUMIN 3.2 g/dL (3.4-5.0)
[2020-09-10 14:29] LABS: ALKALINE PHOSPHATASE 54 U/L (45-117); BILIRUBIN,TOTAL 0.4 mg/dL (0.2-1.0); TOTAL PROTEIN 6.9 g/dL (6.4-8.2)
--- NOTE | 2020-09-10 14:34 | NUR ---
BREAK RN: PT OOB AMBULATE UPRIGHT STEADY GAIT TO BATHROOM. INSTRUCTED ON COLLECTION OF MID STREAM URINE SAMPLE.
--- NOTE | 2020-09-10 14:41 | NUR ---
BREAK RN: PT RTD TO ROOM W/O INCIDENT. URINE COLLECTED AND SENT TO LAB. ALL MONITORS IN PLACE AND IVF INFUSING W/O DIFFICULTY. CALL LIGHT W/I REACH
--- NOTE | 2020-09-10 14:44 | NUR ---
BREAK RN: PT TO CT WITH TECH TRANSPORT
[2020-09-10 14:57] LABS: MICROSCOPIC AUTO
[2020-09-10] MEDS ORDERED: OMNIPAQUE 350 MG/ML, 100ML BOTTLE ONE (15:09)
--- NOTE | 2020-09-10 15:21 | NUR ---
recheck, ct shows diverticulitis. ivf infusing. as
[2020-09-10 15:38] VITALS: BP 116/66
[2020-09-10] MEDS ORDERED: metroNIDAZOLE 500 MG TABLET PO ONE (16:30)
[2020-09-10] MEDS ORDERED: CIPROFLOXACIN 500 MG TABLET PO ONE (16:30)
[2020-09-10] MEDS ORDERED: metroNIDAZOLE 500 MG TABLET ONE (16:51)
[2020-09-10] MEDS ORDERED: CIPROFLOXACIN 500 MG TABLET ONE (16:52)
== END 2020-09-10 17:05 | disposition home or self-care (01) ==
LOC: ED 14:06
DX: K57.32 Diverticulitis of large intestine without perforation or abscess without bleeding (principal); R10.32 Left lower quadrant pain; M54.5 Low back pain; K59.00 Constipation, unspecified; I10 Essential (primary) hypertension; E11.9 Type 2 diabetes mellitus without complications; J44.9 Chronic obstructive pulmonary disease, unspecified; K21.9 Gastro-esophageal reflux disease without esophagitis; F17.200 Nicotine dependence, unspecified, uncomplicated; Z85.46 Personal history of malignant neoplasm of prostate
CPT/HCPCS: 36415; 71045; 74177; 80053; 81001; 83690; 85025; 96360; 96361; 99285; J7030; Q9967

== ENCOUNTER 2020-10-11 13:21 | Inpatient (IN) | payer MEDICARE, MEDICAID ==
[~2020-10-11] VITALS: Ht 182.9 cm; Wt 98.5 kg
--- NOTE | 2020-10-11 13:37 | NUR ---
BIB EMS FOR C/O SOB, COUGH, CONGESTION, BODY ACHES, FEVERS STARTED 3 WEEKS AGO. PT STATES HIS NEIGHBOR TESTED POSITIVE AND PT HAS BEEN AROUND HIM. HX COPD AND ASTHMA. 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 PT RESTING ON GURNEY. NADN. MONITORS APPLIED. VSS. EKG COMPLETED. WARM BLANKET PROVIDED. CALL LIGHT IN REACH.
[2020-10-11 14:24] LABS: PLATELET (DIC) 253 x10^3/uL (130-400)
[2020-10-11 14:25] LABS: BASOPHILS % (AUTO) 0 % (0-1); EOSINOPHILS % (AUTO) 0 % (1-7); LYMPHOCYTES % (AUTO) 14 % (22-44); MEAN CORPUSCULAR HGB CONC 33.9 g/dL (33.2-36.2); MEAN PLATELET VOLUME 7.2 fL (7.4-10.4); MONOCYTES % (AUTO) 10 % (2-9); NEUTROPHILS % (AUTO) 76 % (42-75); PLATELET COUNT 263 x10^3/uL (130-400); RED BLOOD COUNT 4.61 x10^6/uL (4.38-5.82)
[2020-10-11] MEDS ORDERED: SODIUM CHLORIDE FLUSH 10ML SYR IVF ONE (14:30)
[2020-10-11 14:36] LABS: ALBUMIN 3.1 g/dL (3.4-5.0); ANION GAP 10 mmol/L (5-15); CALCIUM 10.2 mg/dL (8.5-10.1); CHLORIDE 102 mmol/L (98-107)
[2020-10-11 14:39] LABS: ALANINE AMINOTRANSFERASE 54 U/L (12-78); ALKALINE PHOSPHATASE 58 U/L (45-117); BILIRUBIN,TOTAL 0.5 mg/dL (0.2-1.0); CREATININE 1.59 mg/dL (0.7-1.3); TOTAL PROTEIN 7.9 g/dL (6.4-8.2); TROPONIN I < 0.015 ng/mL (0.000-0.045)
[2020-10-11 14:40] LABS: D-DIMER (DIC) 0.53 ug/mlFEU (0.00-0.52); PROTIME 10.2 Seconds (9.6-11.5); PTT 32 Seconds (25-31)
[2020-10-11 14:41] LABS: FIBRINOGEN > 713 mg/dL (200-340)
--- NOTE | 2020-10-11 14:57 | NUR ---
PT RESTING ON GURNEY. NADN. NATION.
--- NOTE | 2020-10-11 15:00 | NUR ---
PT CHART REVIEWED AND PLACED FOR RECHECK.
[2020-10-11] MEDS ORDERED: ALBUTEROL/IPRATROPIUM 2.5MG/0.5MG, 3 ML NPPB ONE (15:30)
[2020-10-11] MEDS ORDERED: SODIUM CHLORIDE FLUSH 10ML SYR IVF PRN (15:30)
[2020-10-11] MEDS ORDERED: ALBUTEROL/IPRATROPIUM 2.5MG/0.5MG, 3 ML ONE (15:42)
--- NOTE | 2020-10-11 15:49 | NUR ---
[facility]. SCHULTZ AT BEDSIDE FOR EVAL. PT RESTING ON GURNEY. NADN. VSS ON 4L NC.
[2020-10-11] MEDS ORDERED: ONDANSETRON ODT 4 MG PO PRN (16:00)
[2020-10-11] MEDS ORDERED: ONDANSETRON 2MG/ML, 2ML IVPush PRN (16:00)
[2020-10-11] MEDS ORDERED: DEXTROSE 50%, 50ML SYRINGE IVPush PRN (16:30)
[2020-10-11] MEDS ORDERED: GLUCAGON 1 MG IM PRN (16:30)
[2020-10-11] MEDS ORDERED: DEXTROSE 4 GM TAB.CHEW PO PRN (16:30)
[2020-10-11] MEDS ORDERED: ENOXAPARIN 40 MG/0.4 ML ONE (16:39)
[2020-10-11] MEDS ORDERED: methylPREDNISolone SOD SUCC 125 MG/2 ML ONE (16:39)
[2020-10-11] MEDS ORDERED: NICOTINE 14MG/24 HR PATCH.TD24 ONE (16:39)
[2020-10-11] MEDS: ENOXAPARIN 40 MG/0.4 ML SQ SCH (16:43)
[2020-10-11] MEDS: methylPREDNISolone SOD SUCC 125 MG/2 ML IVPush SCH ×2 (16:43→22:25)
[2020-10-11] MEDS: NICOTINE 14MG/24 HR PATCH.TD24 TD SCH (16:43)
[2020-10-11] MEDS: CEFTRIAXONE 1,000 MG in DEXTROSE 5% 50 ML IVPB SCH (16:43)
--- NOTE | 2020-10-11 17:08 | NUR ---
PT RESTING ON GURPAULINE. NADN. PT O2 SATS BORDERLINE.
--- NOTE | 2020-10-11 17:27 | NUR ---
REPORT GIVEN TO SAMANTHA, RECEIVING RN. ALL QUESTIONS ANSWERED. AWAITING PT TRANSPORT.
[2020-10-11 19:03] VITALS: BP 121/74
[2020-10-11] MEDS: DOXAZOSIN 2MG TABLET PO SCH (20:12)
[2020-10-11] MEDS: MELATONIN 5 MG TABLET PO SCH (20:12)
[2020-10-11] MEDS: SIMVASTATIN 20 MG TABLET PO SCH (20:12)
[2020-10-11] MEDS: FAMOTIDINE 20 MG TABLET PO SCH (20:12)
[2020-10-11] MEDS: INSULIN LISPRO 100 UNITS/ML, PEN SQ-INSULIN SCH (20:44)
[2020-10-11] MEDS: INSULIN GLARGINE 100 UNITS/ML, PEN SQ-INSULIN SCH (20:44)
[2020-10-11] MEDS: BUPROPION HCL PO SCH (20:47)
[2020-10-11] MEDS ORDERED: SODIUM CHLORIDE FLUSH 10ML SYR IVF SCH (21:00)
[2020-10-11] MEDS ORDERED: BUPROPION SR 150 MG TABLET PO ONE (21:00)
[2020-10-12 02:01] VITALS: BP 122/76
[2020-10-12] MEDS: methylPREDNISolone SOD SUCC 125 MG/2 ML IVPush SCH ×3 (04:24→21:48)
[2020-10-12 05:50] LABS: BASOPHILS % (AUTO) 0 % (0-1); EOSINOPHILS % (AUTO) 0 % (1-7); LYMPHOCYTES % (AUTO) 8 % (22-44); MEAN CORPUSCULAR HEMOGLOBIN 28.6 pg (27.5-34.5); MEAN CORPUSCULAR HGB CONC 33.7 g/dL (33.2-36.2); MEAN PLATELET VOLUME 7.1 fL (7.4-10.4); MONOCYTES % (AUTO) 3 % (2-9); NEUTROPHILS % (AUTO) 88 % (42-75); PLATELET COUNT 231 x10^3/uL (130-400); RED BLOOD COUNT 4.41 x10^6/uL (4.38-5.82); RED CELL DISTRIBUTION WIDTH 14.9 % (9.4-14.8)
[2020-10-12 05:56] LABS: CHLORIDE 104 mmol/L (98-107)
[2020-10-12 06:00] LABS: ANION GAP 9 mmol/L (5-15); CALCIUM 9.6 mg/dL (8.5-10.1); CREATININE 1.64 mg/dL (0.7-1.3)
[2020-10-12] MEDS: AMLODIPINE 10 MG TAB PO SCH (07:20)
[2020-10-12] MEDS: METOPROLOL SUCCINATE 100 MG TAB.ER.24H PO SCH (07:20)
[2020-10-12] MEDS: FAMOTIDINE 20 MG TABLET PO SCH ×2 (07:20→21:48)
[2020-10-12] MEDS: ASPIRIN 81 MG TABLET EC PO SCH (07:21)
[2020-10-12] MEDS: INSULIN LISPRO 100 UNITS/ML, PEN SQ-INSULIN SCH ×4 (07:27→21:49)
[2020-10-12] MEDS: INSULIN GLARGINE 100 UNITS/ML, PEN SQ-INSULIN SCH ×2 (07:28→21:49)
[2020-10-12 07:29] VITALS: BP 146/81
[2020-10-12] MEDS: ALLOPURINOL 100 MG TABLET PO SCH (09:28)
[2020-10-12] MEDS: TIOTROPIUM BROMIDE 18 MCG/INH INH SCH (09:29)
[2020-10-12] MEDS: FLUTICASONE/VILANTEROL 100-25MCG/INH INH SCH (09:29)
[2020-10-12 13:04] VITALS: BP 108/64
[2020-10-12] MEDS: ENOXAPARIN 40 MG/0.4 ML SQ SCH (16:00)
[2020-10-12] MEDS: NICOTINE 14MG/24 HR PATCH.TD24 TD SCH (16:06)
[2020-10-12] MEDS: CEFTRIAXONE 1,000 MG in DEXTROSE 5% 50 ML IVPB SCH (16:07)
[2020-10-12 20:00] VITALS: BP 114/65
[2020-10-12] MEDS: BUPROPION HCL PO SCH (21:00)
[2020-10-12] MEDS: DOXAZOSIN 2MG TABLET PO SCH (21:47)
[2020-10-12] MEDS: MELATONIN 5 MG TABLET PO SCH (21:47)
[2020-10-12] MEDS: BUPROPION SR 150 MG TABLET PO SCH (21:47)
[2020-10-12] MEDS: SIMVASTATIN 20 MG TABLET PO SCH (21:52)
[2020-10-13 00:55] VITALS: BP 108/63
[2020-10-13 06:40] LABS: ANION GAP 8 mmol/L (5-15); CALCIUM 9.5 mg/dL (8.5-10.1); CHLORIDE 107 mmol/L (98-107); CREATININE 1.56 mg/dL (0.7-1.3)
[2020-10-13] MEDS: FLUTICASONE/VILANTEROL 100-25MCG/INH INH SCH (07:49)
[2020-10-13] MEDS: TIOTROPIUM BROMIDE 18 MCG/INH INH SCH (07:49)
[2020-10-13] MEDS: ALLOPURINOL 100 MG TABLET PO SCH (07:50)
[2020-10-13] MEDS: AMLODIPINE 10 MG TAB PO SCH (07:50)
[2020-10-13] MEDS: ASPIRIN 81 MG TABLET EC PO SCH (07:50)
[2020-10-13] MEDS: METOPROLOL SUCCINATE 100 MG TAB.ER.24H PO SCH (07:50)
[2020-10-13 07:54] VITALS: BP 119/71
[2020-10-13] MEDS: INSULIN GLARGINE 100 UNITS/ML, PEN SQ-INSULIN SCH ×2 (08:38→22:08)
[2020-10-13] MEDS: INSULIN LISPRO 100 UNITS/ML, PEN SQ-INSULIN SCH ×7 (08:38→22:09)
[2020-10-13] MEDS: methylPREDNISolone SOD SUCC 125 MG/2 ML IVPush SCH ×2 (10:38→22:08)
[2020-10-13 14:20] VITALS: BP 103/63
[2020-10-13] MEDS: ENOXAPARIN 40 MG/0.4 ML SQ SCH (16:00)
[2020-10-13] MEDS: NICOTINE 14MG/24 HR PATCH.TD24 TD SCH (16:00)
[2020-10-13] MEDS: CEFTRIAXONE 1,000 MG in DEXTROSE 5% 50 ML IVPB SCH (16:37)
[2020-10-13 20:00] VITALS: BP 112/68
[2020-10-13] MEDS: BUPROPION HCL PO SCH (22:09)
[2020-10-13] MEDS: DOXAZOSIN 2MG TABLET PO SCH (22:09)
[2020-10-13] MEDS: FAMOTIDINE 20 MG TABLET PO SCH (22:09)
[2020-10-13] MEDS: SIMVASTATIN 20 MG TABLET PO SCH (22:09)
[2020-10-13] MEDS: BUPROPION SR 150 MG TABLET PO SCH (22:09)
[2020-10-13] MEDS: MELATONIN 5 MG TABLET PO SCH (22:09)
[2020-10-14 05:37] LABS: HCT (SEDRATE) 41.1 % (39.2-51.8)
[2020-10-14 05:45] LABS: BASOPHILS % (AUTO) 0 % (0-1); EOSINOPHILS % (AUTO) 0 % (1-7); LYMPHOCYTES % (AUTO) 3 % (22-44); MEAN CORPUSCULAR HEMOGLOBIN 28.3 pg (27.5-34.5); MEAN CORPUSCULAR HGB CONC 33.4 g/dL (33.2-36.2); MEAN PLATELET VOLUME 7.7 fL (7.4-10.4); MONOCYTES % (AUTO) 3 % (2-9); NEUTROPHILS % (AUTO) 94 % (42-75); PLATELET COUNT 268 x10^3/uL (130-400); RED BLOOD COUNT 4.44 x10^6/uL (4.38-5.82); RED CELL DISTRIBUTION WIDTH 14.9 % (9.4-14.8)
[2020-10-14 05:47] LABS: CHLORIDE 110 mmol/L (98-107)
[2020-10-14 06:01] LABS: ALANINE AMINOTRANSFERASE 66 U/L (12-78); ALBUMIN 2.3 g/dL (3.4-5.0); ALKALINE PHOSPHATASE 54 U/L (45-117); ANION GAP 6 mmol/L (5-15); BILIRUBIN,TOTAL 0.2 mg/dL (0.2-1.0); CALCIUM 8.9 mg/dL (8.5-10.1); CREATININE 1.42 mg/dL (0.7-1.3); TOTAL PROTEIN 6.8 g/dL (6.4-8.2)
[2020-10-14] MEDS: ALLOPURINOL 100 MG TABLET PO SCH (08:17)
[2020-10-14] MEDS: AMLODIPINE 10 MG TAB PO SCH (08:17)
[2020-10-14] MEDS: ASPIRIN 81 MG TABLET EC PO SCH (08:17)
[2020-10-14] MEDS: INSULIN GLARGINE 100 UNITS/ML, PEN SQ-INSULIN SCH ×2 (08:18→20:46)
[2020-10-14] MEDS: TIOTROPIUM BROMIDE 18 MCG/INH INH SCH (08:19)
[2020-10-14] MEDS: FLUTICASONE/VILANTEROL 100-25MCG/INH INH SCH (08:19)
[2020-10-14] MEDS: INSULIN LISPRO 100 UNITS/ML, PEN SQ-INSULIN SCH ×7 (08:19→20:46)
[2020-10-14] MEDS: DEXAMETHASONE 4 MG/ML, 1ML IVPush SCH (08:19)
[2020-10-14 09:56] VITALS: BP 112/64
[2020-10-14] MEDS: METOPROLOL SUCCINATE 100 MG TAB.ER.24H PO SCH (10:21)
[2020-10-14] MEDS ORDERED: INSULIN LISPRO 100 UNITS/ML, PEN SQ-INSULIN SCH (11:00)
[2020-10-14] MEDS ORDERED: REMDESIVIR 200 MG in SODIUM CHLORIDE 0.9% 250 ML IVPB ONE (12:30)
[2020-10-14 14:21] VITALS: BP 139/77
[2020-10-14] MEDS: ENOXAPARIN 40 MG/0.4 ML SQ SCH (16:00)
[2020-10-14] MEDS: NICOTINE 14MG/24 HR PATCH.TD24 TD SCH (16:01)
[2020-10-14] MEDS: CEFTRIAXONE 1,000 MG in DEXTROSE 5% 50 ML IVPB SCH (16:01)
[2020-10-14 19:07] VITALS: BP 149/77
[2020-10-14] MEDS: SIMVASTATIN 20 MG TABLET PO SCH (20:45)
[2020-10-14] MEDS: DOXAZOSIN 2MG TABLET PO SCH (20:45)
[2020-10-14] MEDS: BUPROPION SR 150 MG TABLET PO SCH (20:45)
[2020-10-14] MEDS: FAMOTIDINE 20 MG TABLET PO SCH (20:45)
[2020-10-14] MEDS: MELATONIN 5 MG TABLET PO SCH (20:47)
[2020-10-14] MEDS: BUPROPION HCL PO SCH (20:47)
[2020-10-15 00:49] VITALS: BP 155/56
[2020-10-15 06:07] LABS: CHLORIDE 111 mmol/L (98-107)
[2020-10-15 06:24] LABS: ALANINE AMINOTRANSFERASE 99 U/L (12-78); ALBUMIN 2.4 g/dL (3.4-5.0); ALKALINE PHOSPHATASE 56 U/L (45-117); ANION GAP 7 mmol/L (5-15); BILIRUBIN,TOTAL 0.3 mg/dL (0.2-1.0); CALCIUM 8.8 mg/dL (8.5-10.1); CREATININE 1.19 mg/dL (0.7-1.3); TOTAL PROTEIN 6.6 g/dL (6.4-8.2)
[2020-10-15] MEDS: INSULIN LISPRO 100 UNITS/ML, PEN SQ-INSULIN SCH ×5 (07:00→20:40)
[2020-10-15 07:51] VITALS: BP 142/86
[2020-10-15] MEDS: AMLODIPINE 10 MG TAB PO SCH (09:05)
[2020-10-15] MEDS: METOPROLOL SUCCINATE 100 MG TAB.ER.24H PO SCH (09:05)
[2020-10-15] MEDS: TIOTROPIUM BROMIDE 18 MCG/INH INH SCH (09:05)
[2020-10-15] MEDS: ASPIRIN 81 MG TABLET EC PO SCH (09:05)
[2020-10-15] MEDS: ALLOPURINOL 100 MG TABLET PO SCH (09:05)
[2020-10-15] MEDS: FLUTICASONE/VILANTEROL 100-25MCG/INH INH SCH (09:05)
[2020-10-15] MEDS: DEXAMETHASONE 4 MG/ML, 1ML IVPush SCH (09:06)
[2020-10-15] MEDS: INSULIN GLARGINE 100 UNITS/ML, PEN SQ-INSULIN SCH (09:06)
[2020-10-15] MEDS: REMDESIVIR 100 MG in SODIUM CHLORIDE 0.9% 250 ML IVPB SCH (11:54)
[2020-10-15 12:11] VITALS: BP 146/81
[2020-10-15] MEDS: ENOXAPARIN 40 MG/0.4 ML SQ SCH (16:00)
[2020-10-15] MEDS: NICOTINE 14MG/24 HR PATCH.TD24 TD SCH (16:01)
[2020-10-15] MEDS: CEFTRIAXONE 1,000 MG in DEXTROSE 5% 50 ML IVPB SCH (16:01)
[2020-10-15 19:45] VITALS: BP 152/85
[2020-10-15] MEDS: SIMVASTATIN 20 MG TABLET PO SCH (20:39)
[2020-10-15] MEDS: BUPROPION SR 150 MG TABLET PO SCH (20:39)
[2020-10-15] MEDS: DOXAZOSIN 2MG TABLET PO SCH (20:40)
[2020-10-15] MEDS: FAMOTIDINE 20 MG TABLET PO SCH (20:40)
[2020-10-15] MEDS: MELATONIN 5 MG TABLET PO SCH (20:41)
[2020-10-15] MEDS: BUPROPION HCL PO SCH (21:00)
[2020-10-15] MEDS ORDERED: INSULIN GLARGINE 100 UNITS/ML, PEN SQ-INSULIN SCH (21:00)
[2020-10-16 01:01] VITALS: BP 144/82
[2020-10-16 05:23] LABS: CHLORIDE 112 mmol/L (98-107)
[2020-10-16 05:30] LABS: ALANINE AMINOTRANSFERASE 102 U/L (12-78); ALBUMIN 2.4 g/dL (3.4-5.0); ALKALINE PHOSPHATASE 49 U/L (45-117); ANION GAP 6 mmol/L (5-15); BILIRUBIN,TOTAL 0.3 mg/dL (0.2-1.0); CALCIUM 8.4 mg/dL (8.5-10.1); TOTAL PROTEIN 6.6 g/dL (6.4-8.2)
[2020-10-16] MEDS: INSULIN LISPRO 100 UNITS/ML, PEN SQ-INSULIN SCH ×4 (07:00→21:08)
[2020-10-16 07:45] VITALS: BP 128/72
[2020-10-16] MEDS: FLUTICASONE/VILANTEROL 100-25MCG/INH INH SCH (09:04)
[2020-10-16] MEDS: ALLOPURINOL 100 MG TABLET PO SCH (09:04)
[2020-10-16] MEDS: TIOTROPIUM BROMIDE 18 MCG/INH INH SCH (09:04)
[2020-10-16] MEDS: DEXAMETHASONE 4 MG/ML, 1ML IVPush SCH (09:04)
[2020-10-16] MEDS: AMLODIPINE 10 MG TAB PO SCH (09:04)
[2020-10-16] MEDS: FAMOTIDINE 20 MG TABLET PO SCH ×2 (09:04→21:05)
[2020-10-16] MEDS: METOPROLOL SUCCINATE 100 MG TAB.ER.24H PO SCH (09:04)
[2020-10-16] MEDS: ASPIRIN 81 MG TABLET EC PO SCH (09:04)
[2020-10-16] MEDS: INSULIN GLARGINE 100 UNITS/ML, PEN SQ-INSULIN SCH ×2 (09:05→21:08)
[2020-10-16] MEDS: REMDESIVIR 100 MG in SODIUM CHLORIDE 0.9% 250 ML IVPB SCH (11:45)
[2020-10-16 13:54] VITALS: BP 132/69
[2020-10-16] MEDS: ENOXAPARIN 40 MG/0.4 ML SQ SCH (16:23)
[2020-10-16] MEDS: CEFTRIAXONE 1,000 MG in DEXTROSE 5% 50 ML IVPB SCH (16:23)
[2020-10-16] MEDS: NICOTINE 14MG/24 HR PATCH.TD24 TD SCH (16:24)
[2020-10-16 19:22] VITALS: BP 156/87
[2020-10-16] MEDS: BUPROPION SR 150 MG TABLET PO SCH (21:04)
[2020-10-16] MEDS: SIMVASTATIN 20 MG TABLET PO SCH (21:05)
[2020-10-16] MEDS: DOXAZOSIN 2MG TABLET PO SCH (21:05)
[2020-10-16] MEDS: MELATONIN 5 MG TABLET PO SCH (21:06)
[2020-10-16] MEDS: BUPROPION HCL PO SCH (22:11)
[2020-10-17 00:55] VITALS: BP 129/71
[2020-10-17 06:05] LABS: CHLORIDE 107 mmol/L (98-107)
[2020-10-17 06:15] LABS: ALANINE AMINOTRANSFERASE 94 U/L (12-78); ALBUMIN 2.5 g/dL (3.4-5.0); ALKALINE PHOSPHATASE 50 U/L (45-117); ANION GAP 8 mmol/L (5-15); BILIRUBIN,TOTAL 0.3 mg/dL (0.2-1.0); CALCIUM 8.7 mg/dL (8.5-10.1); CREATININE 1.18 mg/dL (0.7-1.3); TOTAL PROTEIN 6.5 g/dL (6.4-8.2)
[2020-10-17] MEDS: INSULIN LISPRO 100 UNITS/ML, PEN SQ-INSULIN SCH ×4 (07:00→21:24)
[2020-10-17 08:10] VITALS: BP 125/78
[2020-10-17] MEDS: TIOTROPIUM BROMIDE 18 MCG/INH INH SCH (09:34)
[2020-10-17] MEDS: FLUTICASONE/VILANTEROL 100-25MCG/INH INH SCH (09:34)
[2020-10-17] MEDS: AMLODIPINE 10 MG TAB PO SCH (09:36)
[2020-10-17] MEDS: ALLOPURINOL 100 MG TABLET PO SCH (09:36)
[2020-10-17] MEDS: ASPIRIN 81 MG TABLET EC PO SCH (09:36)
[2020-10-17] MEDS: FAMOTIDINE 20 MG TABLET PO SCH ×2 (09:36→21:11)
[2020-10-17] MEDS: METOPROLOL SUCCINATE 100 MG TAB.ER.24H PO SCH (09:36)
[2020-10-17] MEDS: DEXAMETHASONE 4 MG/ML, 1ML IVPush SCH (09:36)
[2020-10-17] MEDS: INSULIN GLARGINE 100 UNITS/ML, PEN SQ-INSULIN SCH ×2 (09:37→21:24)
[2020-10-17] MEDS: REMDESIVIR 100 MG in SODIUM CHLORIDE 0.9% 250 ML IVPB SCH (12:29)
[2020-10-17 13:26] VITALS: BP 112/69
[2020-10-17] MEDS: CEFTRIAXONE 1,000 MG in DEXTROSE 5% 50 ML IVPB SCH (16:49)
[2020-10-17] MEDS: ENOXAPARIN 40 MG/0.4 ML SQ SCH (16:50)
[2020-10-17] MEDS: NICOTINE 14MG/24 HR PATCH.TD24 TD SCH (16:50)
[2020-10-17] MEDS ORDERED: ALBUTEROL SULFATE 2.5 MG/3 ML ONE (19:22)
[2020-10-17 19:28] VITALS: BP 158/83
[2020-10-17] MEDS: BUPROPION HCL PO SCH (21:00)
[2020-10-17] MEDS: BUPROPION SR 150 MG TABLET PO SCH (21:11)
[2020-10-17] MEDS: SIMVASTATIN 20 MG TABLET PO SCH (21:11)
[2020-10-17] MEDS: DOXAZOSIN 2MG TABLET PO SCH (21:11)
[2020-10-17] MEDS: MELATONIN 5 MG TABLET PO SCH (21:12)
[2020-10-18 00:01] VITALS: BP 148/86
[2020-10-18 05:55] LABS: CHLORIDE 106 mmol/L (98-107)
[2020-10-18 06:04] LABS: ALANINE AMINOTRANSFERASE 86 U/L (12-78); ALBUMIN 2.6 g/dL (3.4-5.0); ALKALINE PHOSPHATASE 54 U/L (45-117); ANION GAP 9 mmol/L (5-15); BILIRUBIN,TOTAL 0.4 mg/dL (0.2-1.0); CALCIUM 9.6 mg/dL (8.5-10.1); CREATININE 1.36 mg/dL (0.7-1.3); TOTAL PROTEIN 6.8 g/dL (6.4-8.2)
[2020-10-18 08:11] VITALS: BP 134/81
[2020-10-18] MEDS: INSULIN LISPRO 100 UNITS/ML, PEN SQ-INSULIN SCH ×3 (09:10→17:00)
[2020-10-18] MEDS: INSULIN GLARGINE 100 UNITS/ML, PEN SQ-INSULIN SCH (09:10)
[2020-10-18] MEDS: FLUTICASONE/VILANTEROL 100-25MCG/INH INH SCH (09:12)
[2020-10-18] MEDS: TIOTROPIUM BROMIDE 18 MCG/INH INH SCH (09:12)
[2020-10-18] MEDS: ASPIRIN 81 MG TABLET EC PO SCH (09:13)
[2020-10-18] MEDS: DEXAMETHASONE 4 MG/ML, 1ML IVPush SCH (09:13)
[2020-10-18] MEDS: AMLODIPINE 10 MG TAB PO SCH (09:13)
[2020-10-18] MEDS: METOPROLOL SUCCINATE 100 MG TAB.ER.24H PO SCH (09:14)
[2020-10-18] MEDS: ALLOPURINOL 100 MG TABLET PO SCH (09:14)
[2020-10-18] MEDS: FAMOTIDINE 20 MG TABLET PO SCH (09:14)
[2020-10-18] MEDS: REMDESIVIR 100 MG in SODIUM CHLORIDE 0.9% 250 ML IVPB SCH (12:56)
[2020-10-18] MEDS ORDERED: CEFTRIAXONE 2,000 MG in DEXTROSE 5% 50 ML IVPB SCH (16:00)
[2020-10-18] MEDS: ENOXAPARIN 40 MG/0.4 ML SQ SCH (16:00)
[2020-10-18] MEDS: NICOTINE 14MG/24 HR PATCH.TD24 TD SCH (17:02)
[2020-10-18 17:05] VITALS: BP 152/85
== END 2020-10-18 18:28 | disposition home or self-care (01) | DRG 177 ==
LOC: ED 13:25 → SUATTDRO 15:21 → 3N 15:55
PROVIDERS: ADMIT Family Medicine; ATTEND Hospitalist
PROC: XW033E5 Introduction of Remdesivir Anti-infective into Peripheral Vein, Percutaneous Approach, New Technology Group 5 (ICD-10-PCS; principal; 2020-10-14)
DX: U07.1 COVID-19 (principal); J96.01 Acute respiratory failure with hypoxia; J12.82 Pneumonia due to coronavirus disease 2019; J44.1 Chronic obstructive pulmonary disease with (acute) exacerbation; J44.0 Chronic obstructive pulmonary disease with (acute) lower respiratory infection; N18.30 Chronic kidney disease, stage 3 unspecified; F32.9 Major depressive disorder, single episode, unspecified; D64.9 Anemia, unspecified; E11.649 Type 2 diabetes mellitus with hypoglycemia without coma; E11.22 Type 2 diabetes mellitus with diabetic chronic kidney disease; E11.65 Type 2 diabetes mellitus with hyperglycemia; E78.5 Hyperlipidemia, unspecified; F12.90 Cannabis use, unspecified, uncomplicated; I12.9 Hypertensive chronic kidney disease with stage 1 through stage 4 chronic kidney disease, or unspecified chronic kidney disease; Z66 Do not resuscitate; K21.9 Gastro-esophageal reflux disease without esophagitis; M10.9 Gout, unspecified; Z72.0 Tobacco use; Z79.4 Long term (current) use of insulin; Z79.899 Other long term (current) drug therapy; Z82.49 Family history of ischemic heart disease and other diseases of the circulatory system; Z82.3 Family history of stroke; Z83.3 Family history of diabetes mellitus
CPT/HCPCS: 36415; 71045; 80048; 80053; 82728; 82962; 83605; 83615; 83735; 83880; 84145; 84484; 85025; 85049; 85379; 85384; 85610; 85651; 85730; 86140; 87040; 93005; 96365; 99285; G0378; J0696; J1100; J1650; U0005; J1815; J2930; J7050; J7512; U0003